=== PATIENT | male | born 1975 | race Caucasian/White ===

== ENCOUNTER 2021-04-30 16:26 | Emergency (ER) | payer OTHER ==
[2021-04-30] MEDS ORDERED: NORCO 5-325 TA1 EACH PO (19:42)
== END 2021-04-30 19:48 | disposition home or self-care (01) ==
LOC: FER 16:26
DX: S90.32XA Contusion of left foot, initial encounter (principal); K21.9 Gastro-esophageal reflux disease without esophagitis; Z23 Encounter for immunization; Z88.0 Allergy status to penicillin; Z88.8 Allergy status to other drugs, medicaments and biological substances; Z79.899 Other long term (current) drug therapy; V86.99XA Unspecified occupant of other special all-terrain or other off-road motor vehicle injured in nontraffic accident, initial encounter
CPT/HCPCS: 73590; 73610; 73630; 90471; 90715